=== PATIENT | male | born 2000 | race Caucasian/White ===

== ENCOUNTER 2018-02-22 00:40 | Emergency (ER) | payer BC ==
[~2018-02-22] VITALS: Ht 182.9 cm; Wt 107.3 kg
[2018-02-22 00:44] VITALS: BP 133/102; TEMP 98.3
[2018-02-22] MEDS ORDERED: ZOLOFT 50MG50 MG PO (00:46)
[2018-02-22 01:21] VITALS: PULSE 94
== END 2018-02-22 01:23 | disposition home or self-care (01) ==
LOC: COL.ER 00:40
DX: R22.33 Localized swelling, mass and lump, upper limb, bilateral (principal); R21 Rash and other nonspecific skin eruption